=== PATIENT | male | born 1960 | race Hispanic/Latino ===

== ENCOUNTER 2019-07-23 22:20 | Emergency (ER) | payer OTHER ==
[~2019-07-23] VITALS: Ht 167.6 cm; Wt 102.3 kg
--- OUTSIDE RECORDS SUMMARY | 2019-07-23 22:22 | XMS REPORT ---
Author Author [facility] Address Unknown Phone Unavailable Care Team Providers Care Ship Fitter Name Role Phone Unavailable Unavailable Problems This patient has no known problems. Allergies, Adverse Reactions, Alerts This patient has no known allergies or adverse reactions. Medications This patient has no known medications. Encounters Start Date/Time End Date/Time Encounter Type Admission Type Attending [facility] Care Department Encounter ID 2018-11-19 00:00:00 2018-11-19 00:00:00 [facility] [id number] 2018-07-30 00:00:00 2018-07-30 00:00:00 [facility] [id number] 2018-07-30 00:00:00 2018-07-30 00:00:00 [facility] [id number] 2018-05-28 00:00:00 2018-05-28 00:00:00 [facility] [id number] 2018-05-21 07:36:05 2018-05-21 07:36:05 [facility] [id number] 2018-05-14 13:02:04 2018-05-14 13:02:04 [facility] [id number] 2018-05-14 00:00:00 2018-05-14 00:00:00 [facility] [id number] 2018-05-13 08:15:50 2018-05-13 08:15:50 [facility] [id number] 2018-05-05 00:00:00 2018-05-05 00:00:00 [facility] [id number] 2018-04-30 12:24:05 2018-04-30 12:24:[address] [facility] [id number] 2018-04-30 10:16:55 2018-04-30 10:16:55 [facility] [id number] 2018-04-30 00:00:00 2018-04-30 00:00:00 [facility] [id number] 2018-04-25 06:11:00 2018-04-25 06:11:00 Outpatient [facility] [id number] 2018-04-25 00:00:00 2018-04-25 00:00:00 [facility] [id number] 2018-04-17 10:15:37 2018-04-17 10:15:37 [facility] [id number] 2018-04-17 00:00:00 2018-04-17 00:00:00 [facility] [id number] 2018-04-10 11:27:06 2018-04-10 11:27:06 [facility] [id number] 2018-04-10 00:00:00 2018-04-10 00:00:00 [facility] [id number] 2018-04-08 10:09:47 2018-04-08 10:09:47 [facility] [id number] 2018-04-08 09:30:36 2018-04-08 09:30:36 [facility] [id number] 2018-04-01 09:48:11 2018-04-01 09:48:11 [facility] [id number] 2018-03-19 08:45:07 2018-03-19 08:45:07 [facility] [id number] 2018-03-12 00:00:00 2018-03-12 00:00:00 [facility] [id number] 2018-02-13 00:00:00 2018-02-13 00:00:00 [facility] [id number] 2018-02-12 00:00:00 2018-02-12 00:00:00 [facility] [id number] 2018-02-05 17:16:09 2018-02-05 17:16:09 [facility] [id number] 2018-02-05 07:35:41 2018-02-05 07:35:[address] [facility] [id number] 2018-01-30 14:33:34 2018-01-30 14:33:34 [facility] [id number] 2018-01-29 07:43:14 2018-01-29 07:43:14 [facility] [id number] 2018-01-21 00:00:00 2018-01-21 00:00:00 [facility] [id number] 2018-01-20 14:39:38 2018-01-20 14:39:38 [facility] [id number] 2018-01-16 00:00:00 2018-01-16 00:00:00 [facility] [id number] 2018-01-14 00:00:00 2018-01-14 00:00:00 [facility] [id number] 2018-01-06 11:44:19 2018-01-06 11:44:19 [facility] [id number] 2018-01-02 11:44:04 2018-01-02 11:44:04 [facility] [id number] 2018-01-01 22:53:22 2018-01-01 22:53:22 Outpatient [facility] [id number] 2018-01-01 16:12:56 2018-01-01 16:12:56 [facility] [id number] 2018-01-01 10:41:41 2018-01-01 10:41:41 [facility] [id number]
[2019-07-23] MEDS ORDERED: KETOROLAC TROMETHAMINE 60 MG/2 ML VIAL IM ONE (22:30)
--- NOTE | 2019-07-23 23:11 | Diagnostic Imaging Report ---
EXAMINATION: CHEST 2 VIEWS INDICATION: COUGH, PAIN WITH COUGHING COMPARISON: None FINDINGS: TUBES and LINES: None. LUNGS: Bibasilar patchy densities, left greater than right suggesting subsegmental atelectasis. Mild prominence of the pulmonary vasculature bilaterally. PLEURA: No pleural effusion or pneumothorax. HEART AND MEDIASTINUM: Cardiac size is moderately enlarged. BONES AND SOFT TISSUES: No acute osseous lesion. UPPER ABDOMEN: No free air under the diaphragm. IMPRESSION: Moderate cardiomegaly mild bilateral pulmonary venous congestion. Bibasilar subsegmental atelectasis. Signed by: Dr. Eugene Carballo M.D. on 07/23/2019 11:08 PM
== END 2019-07-23 23:34 | disposition home or self-care (01) ==
LOC: ER 22:20
DX: J20.9 Acute bronchitis, unspecified (principal); S39.011A Strain of muscle, fascia and tendon of abdomen, initial encounter; X58.XXXA Exposure to other specified factors, initial encounter; I10 Essential (primary) hypertension; K21.9 Gastro-esophageal reflux disease without esophagitis; E78.5 Hyperlipidemia, unspecified; Z86.73 Personal history of transient ischemic attack (TIA), and cerebral infarction without residual deficits
CPT/HCPCS: 71046; 99282; J1885

== ENCOUNTER 2019-12-02 09:35 | Emergency (ER) | payer OTHER ==
[~2019-12-02] VITALS: Ht 167.6 cm; Wt 95.3 kg
--- NOTE | 2019-12-02 10:10 | Emergency Department Note ---
History of Present Illnes History of Present Illness Chief Complaint: Eye, Ear, Nose, Throat, Dental History of Present Illness This is a 59 year old male HERE FOR CHRONIC NASAL CONGESTION, STATES PROBLEM HAS BEEN SINCE 2 YEARS PLUS. CLIENT DENIES FEVER, COUGH, NAUSEA, VOMITING, DIARRHEA. Historian: Patient Arrival Mode: Car Screen Printing Equipment Setter Required: Yes (VICKEY, SWITCH OPERATOR IN TRIAGE) Location: NASAL CONGESTION Quality: CONGESTION Radiation: Reports non-radiation Severity: moderate Onset quality: gradual Duration (how long): month(s) (YEARS) Timing of current episode: intermittent (GETS WORSE AT NIGHT) Progression: waxing and waning Chronicity: chronic Context: Denies recent illness Relieving factors: none Exacerbating factors: none Associated symptoms: Reports denies other symptoms; Denies fever/chills, Denies shortness of breath Treatments prior to arrival: none Past Medical/Family History Physician Review I have reviewed the patient's past medical and family history. Any updates have been documented here. Past Medical History Recent Fever: No Clinical Suspicion of Infectio: No New/Unexplained Change in Ment: No Past Medical History: CHF, CVA, Hyperlipedemia Past Surgical History: Hernia Repair Other Surgery: INGUINAL HERNIA REPAIR Social History Smoking Cessation: Never Smoker Counseling Performed: No Alcohol Use: Social Any Illegal Drug Use: No TB Exposure/Symptoms: No Physically hurt or threatened: No Family History Family history of heart diseas: Yes Other Any Pre-Existing Lines (PICC,: No Review of Systems Review of Systems Constitutional: Reports no symptoms EENTM: Reports as per HPI Cardiovascular: Reports no symptoms Respiratory: Reports no symptoms Gastrointestinal: Reports no symptoms Genitourinary: Reports no symptoms Musculoskeletal: Reports no symptoms Integumentary: Reports no symptoms Neurological: Reports no symptoms Psychological: Reports no symptoms Endocrine: Reports no symptoms Hematological/Lymphatic: Reports no symptoms Physical Exam Related Data Allergies: Coded Allergies: No Known Allergies (Unverified , 07/23/19) Triage Vital Signs Vital Signs Date Time Temp Pulse Resp B/P (MAP) Pulse Ox O2 Delivery O2 Flow Rate FiO2 12/02/19 09:55 98.4 86 16 115/74 96 Vital signs reviewed: Yes Physical Exam CONSTITUTIONAL Constitutional: Present well-developed, Present well-nourished HENT HENT: Present oropharynx clear/moist, Present oropharynx normal, Present other (MILD TENDERNESS BILAT MAXILLARY SINUSES, BOGGY TURBINATES BILAT NARES) HENT L/R: Present left ext ear normal, Present right ext ear normal EYES Eyes: Reports PERRL, Reports conjunctivae normal NECK Neck: Present ROM normal PULMONARY Pulmonary: Present effort normal, Present breath sounds normal CARDIOVASCULAR Cardiovascular: Present regular rhythm, Present heart sounds normal, Present capillary refill normal, Present normal rate GASTROINTESTINAL Abdominal: Present soft, Present nontender, Present bowel sounds normal GENITOURINARY Genitourinary: Present exam deferred SKIN Skin: Present warm, Present dry MUSCULOSKELETAL Musculoskeletal: Present ROM normal NEUROLOGICAL Neurological: Present alert, Present oriented x 3, Present no gross motor or sensory deficits PSYCHOLOGICAL Psychological: Present mood/affect normal, Present judgement normal Assessment & Plan Medical Decision Making MDM SEASONAL VS CHRONIC SINUSITIS - NO TESTING NEEDED, NEEDS PCP Reassessment Reassessment DC HOME WITH INSTRUCTIONS FOR JOAQUIN VS ZYRTEC DAILY, FLONASE NS BID X 1 WEEK THEN QDAY, AUGMENTIN BID X 10 DAYS, PCP GIVE DR NAVARRO'S NUMBER Assessment & Plan Final Impression: (1) Sinusitis Last Vital Signs Date Time Temp Pulse Resp B/P (MAP) Pulse Ox O2 Delivery O2 Flow Rate FiO2 12/02/19 09:55 98.4 86 16 115/74 96 GERRI NIEVES MD Dec 02, 2019 10:10
== END 2019-12-02 10:13 | disposition home or self-care (01) ==
LOC: ER 09:35
DX: J32.9 Chronic sinusitis, unspecified (principal); I50.9 Heart failure, unspecified; E78.5 Hyperlipidemia, unspecified; Z86.73 Personal history of transient ischemic attack (TIA), and cerebral infarction without residual deficits
CPT/HCPCS: 99282

== ENCOUNTER 2019-12-08 21:32 | Inpatient (IN) | payer OTHER ==
[~2019-12-08] VITALS: Ht 167.6 cm; Wt 99.8 kg
--- NOTE | 2019-12-08 23:39 | Emergency Department Note ---
History of Present Illnes History of Present Illness Chief Complaint: Respiratory History of Present Illness This is a 59 year old male c/o SOB, chest congestion, chest pain, gene ral malaise for 3 weeks, been to ER and PCP office, told to have COVID 19 but no test was done. He was put on abx and currently taking it. Marco A is not getting better Past Medical History CHF, CVA, Hyperlipedemia Past Surgical History: Hernia Repair Other Surgery INGUINAL HERNIA REPAIR Historian: Patient Arrival Mode: Car Onset (how long ago): week(s) (3 weeks) Severity: moderate Duration (how long): week(s) Progression: waxing and waning Relieving factors: none Exacerbating factors: none Previous service: medications given Past Medical/Family History Physician Review I have reviewed the patient's past medical and family history. Any updates have been documented here. Past Medical History Past Medical History: CHF, CVA, Hyperlipedemia Past Surgical History: Hernia Repair Other Surgery: INGUINAL HERNIA REPAIR Social History Smoking Cessation: Former smoker Counseling Performed: No Alcohol Use: None Any Illegal Drug Use: No TB Exposure/Symptoms: No Physically hurt or threatened: No Family History Family history of heart diseas: No Other Any Pre-Existing Lines (PICC,: No Review of Systems Review of Systems Constitutional: Reports no symptoms EENTM: Reports no symptoms Cardiovascular: Reports as per HPI Respiratory: Reports as per HPI, Reports chest congestion, Reports cough, Reports pain on inspiration, Reports pain with cough, Reports dyspnea Gastrointestinal: Reports no symptoms Genitourinary: Reports no symptoms Musculoskeletal: Reports no symptoms Integumentary: Reports no symptoms Neurological: Reports no symptoms Psychological: Reports no symptoms Endocrine: Reports no symptoms Hematological/Lymphatic: Reports no symptoms Physical Exam Related Data Allergies: Coded Allergies: No Known Allergies (Unverified , 07/23/19) Vital signs reviewed: Yes Physical Exam CONSTITUTIONAL Constitutional: Present well-developed, Present obese, Present distressed HENT HENT: Present normocephalic, Present atraumatic, Present oropharynx clear/ moist, Present nose normal HENT L/R: Present left ext ear normal, Present right ext ear normal EYES Eyes: Reports PERRL, Reports conjunctivae normal NECK Neck: Present ROM normal PULMONARY Pulmonary: Present effort normal, Present rales CARDIOVASCULAR Cardiovascular: Present regular rhythm, Present heart sounds normal, Present capillary refill normal, Present normal rate GASTROINTESTINAL Abdominal: Present soft, Present nontender, Present bowel sounds normal GENITOURINARY Genitourinary: Present exam deferred SKIN Skin: Present warm, Present dry MUSCULOSKELETAL Musculoskeletal: Present ROM normal, Present edema NEUROLOGICAL Neurological: Present alert, Present oriented x 3, Present no gross motor or sensory deficits PSYCHOLOGICAL Psychological: Present mood/affect normal, Present judgement normal Results Laboratory Lab results reviewed: Yes Laboratory comments BNP high, CMN Imaging Imaging results reviewed: Yes Imaging Comments c/w COVID 19 Diagnostics Tests Diagnostic test(s) reviewed: Yes Assessment & Plan Medical Decision Making MDM pneumonia, complicated by CHF Reassessment Reassessment time: 02:08 Reassessment doing about the same Assessment & Plan Final Impression: (1) Hypoxia (2) Pneumonia (3) COVID-19 virus infection Depart Disposition: ADMITTED Medications in the ED Rocephin IV Dexamethasone. Physician Attestation Provider Attestation Pt is symptomatic, hx CHF need admission. Admit to Dr Urena. PCP OXANA Limon MD Dec 08, 2019 23:39
--- NOTE | 2019-12-08 23:48 | Diagnostic Imaging Report ---
Examination: Single AP view of the chest. COMPARISON: Chest PA and lateral 07/23/2019 INDICATION: Cough, COVID testing IMPRESSION: 1. Lines and Tubes: None 2. Lungs are well-inflated. Bilateral ill-defined patchy and predominantly peripherally located interstitial and airspace opacities, better visualized in the right mid lung and left midlung/retrocardiac region. Findings are suggestive of pneumonia (including viral disease) in the appropriate clinical setting. Alveolar and interstitial edema with a secondary consideration. 3. Stable marked enlargement of the cardiac silhouette with enlargement of the left atrium. Central pulmonary venous congestion. 4. No acute bony abnormalities. Signed by: Dr. Trenton Roblero M.D. on 12/08/2019 11:45 PM
[2019-12-09] VITALS (7 sets, daily range): BP systolic 116–123; BP diastolic 75–82
[2019-12-09] MEDS ORDERED: CEFTRIAXONE SOD 1 GM/NS 50 ML 50 ML IV ONE (00:15)
[2019-12-09] MEDS ORDERED: DEXAMETHASONE SOD PHOS 10 MG/1 ML VIAL IV ONE (00:15)
[2019-12-09] MEDS ORDERED: AZITHROMYCIN 500MG/SOD CHL 0.9% 250ML BAG IV SCH (02:00)
[2019-12-09] MEDS ORDERED: ZOLPIDEM TARTRATE 5 MG TAB PO PRN (02:00)
[2019-12-09] MEDS ORDERED: ACETAMINOPHEN 325 MG TAB PO PRN (02:00)
[2019-12-09] MEDS ORDERED: ONDANSETRON HCL INJ 2MG/ML 2ML 2 MG/ML VIAL IV PRN (02:00)
[2019-12-09] MEDS ORDERED: DIPHENHYDRAMINE HCL INJ 50 MG/ML VIAL IV PRN (02:00)
[2019-12-09] MEDS ORDERED: SODIUM CHLORIDE FLUSH 10 ML SYR INJ PRN (02:00)
--- NOTE | 2019-12-09 02:07 | NUR ---
SPOKE WITH [facility] ETA APPROX. 30/45MINS.
--- NOTE | 2019-12-09 02:42 | NUR ---
REPORT TO DIEGO KENYON FOR ROOM 179. SENDING 1ST DOSE ZITHROMAX WITH PT
[2019-12-09] MEDS ORDERED: AZITHROMYCIN 500MG/NS 250 ML 250 ML ONE (02:48)
--- NOTE | 2019-12-09 02:54 | NUR ---
report called from Sherrie RN, PATIENT PENDING ARRIVAL TO THE OBS UNIT FOR FURTHER EVALUATION, RN WILL SEND ZITHROMAX WITH PATIENT
[2019-12-09] MEDS ORDERED: SODIUM CHLORIDE 0.9% 250ML 250 ML IV ONE (03:15)
--- NOTE | 2019-12-09 04:00 | NUR ---
LAB REPORTED PT COVID-19 RESULT POSITIVE, PT INFORMED OF RESULT
[2019-12-09] MEDS ORDERED: CARVEDILOL12.5 MG PO (05:10)
[2019-12-09] MEDS ORDERED: LISINOPRIL10 MG PO (05:10)
[2019-12-09] MEDS ORDERED: PREDNISONE20 MG PO (05:10)
[2019-12-09] MEDS ORDERED: AZITHROMYCIN250 MG PO (05:10)
[2019-12-09] MEDS ORDERED: ELIQUIS5 M1 PO (05:10)
[2019-12-09] MEDS ORDERED: PROTONIX20 MG PO (05:10)
[2019-12-09 05:25] LABS: HEMATOCRIT 41.8 % (38.2-49.6); LYMPHOCYTES # (AUTO) 0.5 (1.0-3.2); LYMPHOCYTES % 7.2 % (18.0-39.1); MEAN CORPUSCULAR HEMOGLOBIN 28.4 pg (28-32); MEAN CORPUSCULAR HGB CONC 31.1 g/dL (31-35); MEAN CORPUSCULAR VOLUME 91.3 fL (81-99); MONOCYTES # (AUTO) 0.4 (0.2-0.8); MONOCYTES % 5.7 % (4.4-11.3); NEUTROPHILS # (AUTO) 5.8 (2.1-6.9); NEUTROPHILS % 86.6 % (38.7-80.0); PLATELET COUNT 206 x10e3/uL (140-360); RED BLOOD COUNT 4.58 x10e6/uL (4.3-5.7); RED CELL DISTRIBUTION WIDTH 14.3 % (11.7-14.4)
[2019-12-09] MEDS ORDERED: CEFEPIME HCL 2 GM/SOD CHL 0.9% 100 ML BAG IV SCH (06:00)
[2019-12-09 06:06] LABS: ANION GAP 15.8 mmol/L (8-16); CALCIUM 8.7 mg/dL (8.4-10.2); CREATININE, SERUM 1.34 mg/dL (0.72-1.25); POTASSIUM 4.8 mmol/L (3.5-5.1)
--- NOTE | 2019-12-09 07:49 | NUR ---
MD JEANNE GOSS, MAKSIM HANEY RETURN CALL, INFORMED HER THAT PT RESULTED POSITIVE FOR COVID, AND IF PATIENT HOME MEDS CAN BE CONTINUED SHE STATED " I WILL LET YOU KNOW WHEN I SEE HIM'
[2019-12-09] MEDS: FAMOTIDINE 20 MG/2 ML VIAL IV SCH ×2 (08:27→17:13)
[2019-12-09] MEDS ORDERED: ENOXAPARIN SOD INJ 40 MG/0.4 ML SYR SC SCH (09:00)
[2019-12-09] MEDS ORDERED: GUAIFENESIN/CODEINE 10 ML CUP PO PRN (09:15)
[2019-12-09] MEDS ORDERED: PROAIR HFA INH8.5 GM INH (09:22)
[2019-12-09] MEDS ORDERED: Guaifenesin/Codeine PO (09:22)
[2019-12-09] MEDS ORDERED: PANTOPRAZOLE SOD 40 MG TABEC PO SCH (09:30)
[2019-12-09 09:57] LABS: CHOL/HDL RATIO 6.6 (3.9-4.7)
[2019-12-09 10:16] LABS: THYROID STIMULATING HORMONE 0.883 uIU/mL (0.350-4.940)
[2019-12-09 10:41] LABS: B-TYPE NATRIURETIC PEPTIDE2 223.6 pg/mL (0-100)
[2019-12-09] MEDS: CARVEDILOL 12.5 MG TAB PO SCH ×2 (11:00→17:14)
[2019-12-09] MEDS ORDERED: CEFEPIME 2 GM/NS 0.9% 100 ML 100 ML IV SCH (14:30)
[2019-12-09] MEDS ORDERED: CEFTRIAXONE SOD 1 GM/NS 50 ML 50 ML IV SCH (15:15)
--- NOTE | 2019-12-09 17:35 | NUR ---
Pt complaining of chest pain notified MD and received orders for STAT troponin. Dr Diaz here to see pt and ordered EKG, albuterol and one time lasix 40mg IV.
[2019-12-09] MEDS ORDERED: ALBUTEROL SULFATE HFA 8GM INHALATION AEROSOL INH PRN (18:00)
--- NOTE | 2019-12-09 18:00 | NUR ---
Notified MD of troponin results. Received orders to discharge. Antibiotics called into pharmacy of patient choice. Discussed discharge instructions with patient and new prescriptions.
[2019-12-09] MEDS ORDERED: FUROSEMIDE 40 MG TAB PO ONE (18:15)
[2019-12-09] MEDS ORDERED: FUROSEMIDE INJ 10 MG/ML 4 ML VIAL IV ONE (18:45)
--- NOTE | 2019-12-09 19:31 | NUR ---
Received report that patient was beiing discharged. &am-7pm nurse gave the discharge paperwork to the patient and reported that the patient is awaiting his ride. Remains in the room at this time. will continue to monitor until the patient leaves the facility.
--- NOTE | 2019-12-09 20:19 | NUR ---
Escorted the Patient to the front lobby with his belongings and discharge paperwork.
[2019-12-09] MEDS ORDERED: APIXABAN 5 MG TABLET PO SCH (21:00)
--- NOTE | 2019-12-09 21:34 | Consultation ---
DATE OF CONSULTATION: Pulmonary Critical Care Consultation CHIEF COMPLAINT: Dyspnea and chest pressure. HISTORY OF PRESENT ILLNESS: The patient is a 59-year-old man. He has a history of atrial fibrillation. He also has a history of a stroke in March of 2019. The patient reports intermittent dyspnea since May. He notes that it is worse at times and better at times. Over the past three weeks, he notes worsening dyspnea. He feels that there is a pressure on his chest. He denies fevers. He does not complain of cough. PAST SURGICAL HISTORY: Status post cardiac catheterization several years ago that was negative. PAST MEDICAL HISTORY: 1. History of atrial fibrillation. 2. History of systolic cardiomyopathy. 3. Hypertension. ALLERGIES: NO KNOWN DRUG ALLERGIES. SOCIAL HISTORY: The patient never smoked. He is not a drinker. FAMILY HISTORY: Noncontributory. REVIEW OF SYSTEMS: There is no fever. He has no headache. He does complain of dyspnea. It is worse with exertion. He also notes some pressure in his chest. He does not complain of abdominal pain. He has no nausea or vomiting. He has no leg edema. He reports difficulty hearing, but no other focal abnormalities. PHYSICAL EXAMINATION: VITAL SIGNS: The patient is afebrile. The blood pressure is 116/77, saturation is 98%. The pulse is 91. HEENT: No facial swelling or erythema. CARDIAC: Reveals regular rate and rhythm with normal S1, S2. LUNGS: Auscultation of lungs reveals clear breath sounds bilaterally. There is no wheezing. ABDOMEN: Soft, nontender. There is no rebound or guarding. EXTREMITIES: No leg edema or calf tenderness. There is no cyanosis clubbing. SKIN: No rashes. NEUROLOGICAL: No focal abnormalities. LABORATORY DATA: White blood cell count is 6.6 and hemoglobin is 13. The platelet count is 206. The BUN to creatinine ratio is 41 to 1.34. The other electrolytes are within normal limits. RADIOGRAPHIC DATA: Chest x-ray shows patchy ill-defined interstitial opacities. IMPRESSION: 1. Viral pneumonia and coronavirus disease-19 infection. 2. Chronic systolic congestive heart failure. 3. Atrial fibrillation. 4. Hypertension. PLAN: 1. Cardiology evaluation and echocardiogram. 2. Zithromax and Rocephin. 3. Lovenox for DVT prophylaxis. 4. Consider Decadron. MD SHAHANA Desai/TISH /[id number]
--- NOTE | 2019-12-10 00:49 | Consultation ---
DATE OF CONSULTATION: HISTORY OF PRESENT ILLNESS: Mr. Hinojosa is a 59-year-old male, comes in with fever and chills and not feeling well. His COVID-19 came back positive. When he first came, he was tachycardic, but currently he is feeling better, but he remains on room air. He is just feeling really bad, but no shortness of breath. He also has some chest pain. He is otherwise unremarkable. MEDICATION LIST: Reviewed. He is on: 1. Coreg. 2. Pepcid. 3. Protonix. 4. Albuterol. 5. Azithromycin. 6. Rocephin. 7. Eliquis. PHYSICAL EXAMINATION: GENERAL: He is currently alert, oriented, does not seem to be in acute distress. VITAL SIGNS: Stable, currently afebrile. HEENT: He is not icteric. NECK: Supple. CHEST: Clear bilaterally. HEART: S1, S2. ABDOMEN: Soft. IMPRESSION: 1. Chest pain, rule out cardiac arrest, fluid overload. 2. Concern about pneumonia, community acquired. 3. COVID-19. I agree with antibiotic. We will give Lasix p.o. x1. We will follow up in the morning. Further recommendations to follow. MD ENRIQUETA Reis/TISH /[id number]
[2019-12-10] MEDS ORDERED: AZITHROMYCIN 500MG/NS 250 ML 250 ML IV SCH (04:00)
--- NOTE | 2019-12-10 22:11 | Discharge Summary ---
ADMISSION DIAGNOSES: Coronavirus disease 2019 pneumonia, present on admission; atrial fibrillation; gastroesophageal reflux disease; hypertension. DISCHARGE DIAGNOSES: Coronavirus disease 2019 pneumonia, present on admission; atrial fibrillation; gastroesophageal reflux disease; hypertension. HISTORY: AFib, hyperlipidemia, CVA, chronic systolic CHF, hypertension. SURGICAL HISTORY: Umbilical hernia repair. FAMILY HISTORY: Noncontributory. SOCIAL HISTORY: Occasional alcohol use. HOSPITAL COURSE: A 59-year-old male admits with complaints of shortness of breath and chest congestion for 3 weeks. Yesterday, the shortness of breath worsened, so he came to the ER. At the present time, symptoms have resolved. He took 2 doses of Zithromax prior to admission. On admission, chest x-ray showed bilateral ill-defined patchy and predominantly peripherally located interstitial and airspace opacities. Findings are suggestive of pneumonia, central pulmonary venous congestion. No acute bony abnormality. The patient was 95% SpO2 or more since admission, so he was discharged home with Keflex per ID recommendation. His echo showed an EF less than 30%, which again is chronic. He shows no edema on chest x-ray or on exam. The patient is on room air and does not qualify for oxygen. He was advised to follow up with Cardiology for EF. The patient understands discharge instructions and agrees to plan. Vital signs stable, the patient is afebrile. Dictated by Bella Penn NP MD NI Good/MODL /[id number]
== END 2019-12-09 20:21 | disposition home or self-care (01) | DRG 177 ==
LOC: FSED 21:32 → ERHOLD 12-09 01:54 → IMCU 12-09 02:41
PROVIDERS: ADMIT Internal Medicine; ATTEND Internal Medicine
DX: U07.1 COVID-19 (principal); J12.9 Viral pneumonia, unspecified; I50.22 Chronic systolic (congestive) heart failure; I42.8 Other cardiomyopathies; K21.9 Gastro-esophageal reflux disease without esophagitis; I11.0 Hypertensive heart disease with heart failure; E78.5 Hyperlipidemia, unspecified; I48.91 Unspecified atrial fibrillation; Z79.01 Long term (current) use of anticoagulants
CPT/HCPCS: 36415; 71045; 80048; 80053; 80061; 83036; 83880; 84443; 84484; 85025; 87635; 93005; 93306; 96365; 96374; 99284; J0456; J0696; J1100; J1200; J1650; J1940; J2405; J7050

== ENCOUNTER 2020-06-05 17:48 | Inpatient (IN) | payer OTHER ==
[~2020-06-05] VITALS: Ht 167.6 cm; Wt 100.0 kg
[~2020-06-05 17:48] MED LIST: AZITHROMYCIN250 MG PO; CARVEDILOL12.5 MG PO; ELIQUIS5 M1 PO; Guaifenesin/Codeine PO; LISINOPRIL10 MG PO; PREDNISONE20 MG PO; PROAIR HFA INH8.5 GM INH; PROTONIX20 MG PO
[2020-06-05 18:54] LABS: BASOPHILS % 0.3 % (0.0-1.0); EOSINOPHILS # (AUTO) 0.2 (0.0-0.4); EOSINOPHILS % 3.2 % (0.0-6.0); HEMATOCRIT 35.9 % (38.2-49.6); HEMOGLOBIN 11.5 g/dL (14.0-18.0); LYMPHOCYTES % 16.3 % (18.0-39.1); MEAN CORPUSCULAR HEMOGLOBIN 29.5 pg (28-32); MEAN CORPUSCULAR VOLUME 92.1 fL (81-99); MONOCYTES # (AUTO) 0.7 (0.2-0.8); MONOCYTES % 10.9 % (4.4-11.3); NEUTROPHILS # (AUTO) 4.1 (2.1-6.9); NEUTROPHILS % 69.1 % (38.7-80.0); PLATELET COUNT 158 x10e3/uL (140-360); RED CELL DISTRIBUTION WIDTH 14.5 % (11.7-14.4)
[2020-06-05 19:05] LABS: INR 1.26; PROTHROMBIN TIME 16.4 seconds (11.9-14.5)
[2020-06-05 19:06] LABS: PARTIAL THROMBOPLASTIN TIME 37.2 seconds (23.8-35.5)
[2020-06-05 19:12] LABS: ALANINE AMINOTRANSFERASE 37 IU/L (0-55); ALBUMIN 3.8 g/dL (3.5-5.0); ALBUMIN/GLOBULIN RATIO 1.1 (0.8-2.0); ALKALINE PHOSPHATASE 77 IU/L (40-150); ANION GAP 14.6 mmol/L (8-16); BLOOD UREA NITROGEN 18 mg/dL (7-26); BUN/CREATININE RATIO 15 (6-25); CALCIUM 8.2 mg/dL (8.4-10.2); CARBON DIOXIDE 25 mmol/L (22-29); CHLORIDE 97 mmol/L (98-107); CREATINE KINASE 150 IU/L (30-200); CREATININE, SERUM 1.19 mg/dL (0.72-1.25); EST GLOMERULAR FILTRATION RATE > 60 ML/MIN (60-); GLUCOSE 104 mg/dL (74-118); POTASSIUM 4.6 mmol/L (3.5-5.1); SODIUM 132 mmol/L (136-145)
[2020-06-05 19:13] LABS: AMYLASE 41 U/L (25-125); LIPASE 18 U/L (8-78)
[2020-06-05 19:18] LABS: CLARITY,URINE CLEAR (CLEAR); COLOR,URINE YELLOW (YELLOW)
[2020-06-05 19:19] LABS: KETONES,URINE NEGATIVE (NEGATIVE); LEUKOCYTE ESTERASE ,URINE NEGATIVE (NEGATIVE); NITRITE,URINE NEGATIVE (NEGATIVE); PROTEIN,URINE DIPSTICK >=300 (NEGATIVE); URINE UROBILINOGEN 1 mg/dL (0.2 - 1); WBC,URINE (MAN) 0-5 /HPF (0-5)
[2020-06-05 19:20] LABS: EPITHELIAL CELLS,URINE FEW /LPF; MUCUS,URINE FEW (RARE); RBC,URINE 0-5 /HPF (0-5)
[2020-06-05] MEDS ORDERED: IOPAMIDOL 370 MG/ML 200 ML INFUS..BTL INJ ONE ×2 (19:58→22:51)
[2020-06-05] MEDS ORDERED: SODIUM CHLORIDE 0.9% 50ML 50 ML ONE ×2 (19:58→22:51)
[2020-06-05] MEDS ORDERED: PIPER-TAZ 3.375 GM / NS 50ML IV STA (21:59)
[2020-06-05] MEDS ORDERED: ONDANSETRON HCL INJ 2MG/ML 2ML 2 MG/ML VIAL IV PRN (22:00)
[2020-06-05] MEDS ORDERED: PIPER-TAZ 3.375 GM / NS 50ML IV SCH (22:00)
[2020-06-05] MEDS ORDERED: SODIUM CHLORIDE FLUSH 10 ML SYR INJ PRN (22:00)
[2020-06-05] MEDS ORDERED: MORPHINE SULFATE INJ 4 MG/ML INJ 1ML IV PRN (22:00)
[2020-06-05] MEDS ORDERED: FUROSEMIDE20 MG PO (22:56)
[2020-06-05] MEDS ORDERED: SIMVASTATIN10 MG PO (22:56)
[2020-06-05] MEDS ORDERED: SUCRALFATE1 GM PO (22:56)
[2020-06-05] MEDS ORDERED: ALLOPURINOL300 MG PO (22:56)
[2020-06-05] MEDS ORDERED: ELIQUIS5 MG PO (22:56)
[2020-06-06] VITALS (7 sets, daily range): BP systolic 123–143; BP diastolic 53–97
[2020-06-06] MEDS ORDERED: SODIUM CHLORIDE 0.9% 250ML 250 ML ONE (04:16)
[2020-06-06] MEDS ORDERED: ALBUTEROL/IPRATROPIUM 3 ML NEB NEB PRN (04:30)
[2020-06-06] MEDS: PIPER-TAZ 3.375 GM 50 ML IV SCH ×3 (05:13→22:00)
[2020-06-06 07:26] LABS: BASOPHILS % 0.3 % (0.0-1.0); EOSINOPHILS # (AUTO) 0.2 (0.0-0.4); HEMATOCRIT 36.4 % (38.2-49.6); HEMOGLOBIN 11.2 g/dL (14.0-18.0); LYMPHOCYTES % 16.4 % (18.0-39.1); MEAN CORPUSCULAR HGB CONC 30.8 g/dL (31-35); MEAN CORPUSCULAR VOLUME 94.3 fL (81-99); MONOCYTES # (AUTO) 0.6 (0.2-0.8); MONOCYTES % 11.1 % (4.4-11.3); NEUTROPHILS # (AUTO) 3.9 (2.1-6.9); PLATELET COUNT 143 x10e3/uL (140-360); RED BLOOD COUNT 3.86 x10e6/uL (4.3-5.7); RED CELL DISTRIBUTION WIDTH 14.6 % (11.7-14.4)
[2020-06-06 07:48] LABS: ALANINE AMINOTRANSFERASE 31 IU/L (0-55); ALBUMIN 3.5 g/dL (3.5-5.0); ALBUMIN/GLOBULIN RATIO 1.1 (0.8-2.0); ALKALINE PHOSPHATASE 65 IU/L (40-150); ANION GAP 11.3 mmol/L (8-16); BLOOD UREA NITROGEN 15 mg/dL (7-26); BUN/CREATININE RATIO 17 (6-25); CALCIUM 8.2 mg/dL (8.4-10.2); CARBON DIOXIDE 28 mmol/L (22-29); CHLORIDE 99 mmol/L (98-107); CREATININE, SERUM 0.88 mg/dL (0.72-1.25); EST GLOMERULAR FILTRATION RATE > 60 ML/MIN (60-); GLUCOSE 98 mg/dL (74-118); POTASSIUM 4.3 mmol/L (3.5-5.1); SODIUM 134 mmol/L (136-145)
[2020-06-06 08:03] LABS: CREATINE KINASE MB 1.6 ng/mL (0-5.0)
[2020-06-06] MEDS ORDERED: SODIUM CHLORIDE 0.9% 1000ML 1,000 ML IV SCH (13:15)
[2020-06-06] MEDS ORDERED: FUROSEMIDE INJ 10 MG/ML 4 ML VIAL IV ONE (15:00)
[2020-06-06] MEDS: SUCRALFATE 1 GM TAB PO SCH (15:05)
[2020-06-06] MEDS: CARVEDILOL 12.5 MG TAB PO SCH (15:05)
[2020-06-06 16:18] LABS: CREATINE KINASE MB 1.4 ng/mL (0-5.0)
[2020-06-06] MEDS: APIXABAN 5 MG TABLET PO SCH (16:57)
[2020-06-06] MEDS: SIMVASTATIN 20 MG TAB PO SCH (20:32)
[2020-06-06] MEDS ORDERED: NON-FORMULARY MEDICATION (Simvastatin 10 MG) PO SCH (21:00)
[2020-06-07] VITALS (8 sets, daily range): BP systolic 113–146; BP diastolic 58–92
[2020-06-07] MEDS ORDERED: BISACODYL 5 MG TAB EC PO ONE ×3 (00:30→01:30)
[2020-06-07] MEDS ORDERED: CITRATE OF MAGNESIA 300ML BOTTLE PO ONE ×3 (00:30→07:30)
[2020-06-07 04:53] LABS: BASOPHILS % 0.4 % (0.0-1.0); EOSINOPHILS # (AUTO) 0.2 (0.0-0.4); EOSINOPHILS % 4.6 % (0.0-6.0); HEMATOCRIT 37.7 % (38.2-49.6); HEMOGLOBIN 11.5 g/dL (14.0-18.0); LYMPHOCYTES # (AUTO) 0.9 (1.0-3.2); LYMPHOCYTES % 18.8 % (18.0-39.1); MEAN CORPUSCULAR HEMOGLOBIN 29.1 pg (28-32); MEAN CORPUSCULAR HGB CONC 30.5 g/dL (31-35); MEAN CORPUSCULAR VOLUME 95.4 fL (81-99); MONOCYTES # (AUTO) 0.6 (0.2-0.8); MONOCYTES % 12.5 % (4.4-11.3); NEUTROPHILS # (AUTO) 3.1 (2.1-6.9); NEUTROPHILS % 63.3 % (38.7-80.0); PLATELET COUNT 143 x10e3/uL (140-360); RED BLOOD COUNT 3.95 x10e6/uL (4.3-5.7); RED CELL DISTRIBUTION WIDTH 14.3 % (11.7-14.4)
[2020-06-07 05:21] LABS: ALANINE AMINOTRANSFERASE 29 IU/L (0-55); ALBUMIN 3.4 g/dL (3.5-5.0); ALKALINE PHOSPHATASE 73 IU/L (40-150); ANION GAP 10.2 mmol/L (8-16); BLOOD UREA NITROGEN 10 mg/dL (7-26); BUN/CREATININE RATIO 11 (6-25); CALCIUM 8.5 mg/dL (8.4-10.2); CARBON DIOXIDE 34 mmol/L (22-29); CHLORIDE 97 mmol/L (98-107); CREATININE, SERUM 0.89 mg/dL (0.72-1.25); EST GLOMERULAR FILTRATION RATE > 60 ML/MIN (60-); GLUCOSE 108 mg/dL (74-118); POTASSIUM 4.2 mmol/L (3.5-5.1); SODIUM 137 mmol/L (136-145)
[2020-06-07] MEDS: PIPER-TAZ 3.375 GM 50 ML IV SCH ×3 (05:42→21:21)
[2020-06-07 06:23] LABS: FERRITIN 18.8 ng/mL (21.81-274.66)
[2020-06-07] MEDS: SUCRALFATE 1 GM TAB PO SCH ×2 (07:30→16:30)
[2020-06-07] MEDS: FUROSEMIDE INJ 10 MG/ML 4 ML VIAL IV SCH (08:18)
[2020-06-07] MEDS: CARVEDILOL 12.5 MG TAB PO SCH ×2 (08:41→17:00)
[2020-06-07] MEDS: LISINOPRIL 20 MG TAB PO SCH (08:42)
[2020-06-07] MEDS: APIXABAN 5 MG TABLET PO SCH ×2 (08:42→17:00)
[2020-06-07] MEDS: PANTOPRAZOLE SOD 40 MG TABEC PO SCH (08:48)
[2020-06-07] MEDS ORDERED: FUROSEMIDE 20 MG TAB PO SCH (09:00)
[2020-06-07] MEDS ORDERED: LISINOPRIL 10 MG TAB PO SCH (09:00)
[2020-06-07] MEDS ORDERED: ETOMIDATE 2 MG/ML 10 ML INJ IV ONE (12:26)
[2020-06-07] MEDS ORDERED: PROPOFOL IV EMULSION 10 MG/ML 20 ML VIAL ONE ×2 (12:26→19:37)
[2020-06-07] MEDS ORDERED: MIDAZOLAM HCL 2 MG/2 ML VIAL ONE (12:56)
[2020-06-07] MEDS: IRON SUCROSE 100 MG in SODIUM CHLORIDE 0.9% 100 ML 100 ML IV SCH (12:57)
[2020-06-07] MEDS: ALBUTEROL/IPRATROPIUM 3 ML NEB NEB SCH ×3 (15:30→23:10)
[2020-06-07] MEDS ORDERED: PROPOFOL IV EMULSION 0 ML IV ONE (19:04)
[2020-06-07] MEDS ORDERED: ETOMIDATE 40 MG/ 20ML VIAL IV ONE (19:37)
[2020-06-07] MEDS: SIMVASTATIN 20 MG TAB PO SCH (21:18)
[2020-06-08] VITALS: BP 130/75
[2020-06-08] MEDS: ALBUTEROL/IPRATROPIUM 3 ML NEB NEB SCH ×4 (03:30→15:00)
[2020-06-08 04:05] VITALS: BP 104/70
[2020-06-08 04:56] LABS: BASOPHILS % 0.2 % (0.0-1.0); EOSINOPHILS # (AUTO) 0.2 (0.0-0.4); EOSINOPHILS % 3.9 % (0.0-6.0); HEMATOCRIT 37.7 % (38.2-49.6); HEMOGLOBIN 11.4 g/dL (14.0-18.0); LYMPHOCYTES # (AUTO) 0.9 (1.0-3.2); LYMPHOCYTES % 15.2 % (18.0-39.1); MEAN CORPUSCULAR HGB CONC 30.2 g/dL (31-35); MEAN CORPUSCULAR VOLUME 95.9 fL (81-99); MONOCYTES # (AUTO) 0.7 (0.2-0.8); MONOCYTES % 11.6 % (4.4-11.3); NEUTROPHILS % 68.8 % (38.7-80.0); PLATELET COUNT 138 x10e3/uL (140-360); RED BLOOD COUNT 3.93 x10e6/uL (4.3-5.7); RED CELL DISTRIBUTION WIDTH 14.4 % (11.7-14.4)
[2020-06-08 05:16] LABS: ANION GAP 11.7 mmol/L (8-16); BLOOD UREA NITROGEN 9 mg/dL (7-26); BUN/CREATININE RATIO 9 (6-25); CALCIUM 8.4 mg/dL (8.4-10.2); CARBON DIOXIDE 32 mmol/L (22-29); CHLORIDE 97 mmol/L (98-107); CREATININE, SERUM 0.97 mg/dL (0.72-1.25); EST GLOMERULAR FILTRATION RATE > 60 ML/MIN (60-); GLUCOSE 92 mg/dL (74-118); POTASSIUM 3.7 mmol/L (3.5-5.1); SODIUM 137 mmol/L (136-145)
[2020-06-08] MEDS: PIPER-TAZ 3.375 GM 50 ML IV SCH ×2 (05:57→14:00)
[2020-06-08 08:30] VITALS: BP 122/76
[2020-06-08 08:41] VITALS: BP 122/76
[2020-06-08] MEDS: SUCRALFATE 1 GM TAB PO SCH ×2 (09:01→16:30)
[2020-06-08] MEDS: CARVEDILOL 12.5 MG TAB PO SCH ×2 (09:01→16:38)
[2020-06-08] MEDS: FUROSEMIDE INJ 10 MG/ML 4 ML VIAL IV SCH (09:01)
[2020-06-08] MEDS: APIXABAN 5 MG TABLET PO SCH ×2 (09:01→16:38)
[2020-06-08] MEDS: PANTOPRAZOLE SOD 40 MG TABEC PO SCH (09:01)
[2020-06-08] MEDS: LISINOPRIL 20 MG TAB PO SCH (09:01)
[2020-06-08] MEDS: IRON SUCROSE 100 MG in SODIUM CHLORIDE 0.9% 100 ML 100 ML IV SCH (11:21)
[2020-06-08 11:31] VITALS: BP 123/80
[2020-06-08 16:13] VITALS: BP 120/68
[2020-06-09] MEDS ORDERED: FLUTICASONE PROPIONATE NASAL SPRAY NS SCH (09:00)
== END 2020-06-08 17:39 | disposition home or self-care (01) | DRG 292 ==
LOC: ER 18:00 → ERHOLD 22:14 → MED/SURG2 06-06 00:49
PROVIDERS: ADMIT Internal Medicine; ATTEND Internal Medicine
PROC: 0DB98ZX Excision of Duodenum, Via Natural or Artificial Opening Endoscopic, Diagnostic (ICD-10-PCS; principal; 2020-06-05)
PROC: 0DB78ZX Excision of Stomach, Pylorus, Via Natural or Artificial Opening Endoscopic, Diagnostic (ICD-10-PCS; 2020-06-05)
PROC: 0DB68ZX Excision of Stomach, Via Natural or Artificial Opening Endoscopic, Diagnostic (ICD-10-PCS; 2020-06-05)
PROC: 0DBN8ZX Excision of Sigmoid Colon, Via Natural or Artificial Opening Endoscopic, Diagnostic (ICD-10-PCS; 2020-06-05)
DX: I11.0 Hypertensive heart disease with heart failure (principal); I48.20 Chronic atrial fibrillation, unspecified; I50.23 Acute on chronic systolic (congestive) heart failure; Z79.01 Long term (current) use of anticoagulants; E78.5 Hyperlipidemia, unspecified; D64.9 Anemia, unspecified; E78.00 Pure hypercholesterolemia, unspecified; K21.9 Gastro-esophageal reflux disease without esophagitis; D50.9 Iron deficiency anemia, unspecified; K63.5 Polyp of colon; K29.70 Gastritis, unspecified, without bleeding; K20.90 Esophagitis, unspecified without bleeding; K57.90 Diverticulosis of intestine, part unspecified, without perforation or abscess without bleeding; Z20.828 Contact with and (suspected) exposure to other viral communicable diseases
CPT/HCPCS: 36415; 43239; 45380; 45385; 71045; 74177; 80048; 80053; 81001; 82140; 82150; 82550; 82553; 82607; 82728; 82746; 82948; 83540; 83690; 83880; 84466; 84484; 85025; 85045; 85610; 85730; 88305; 88312; 93005; 93306; 94640; 99284; J1756; J1940; J2250; J2543; J7030; J7050; Q9967; U0002

== ENCOUNTER 2020-10-22 10:37 | Emergency (ER) | payer OTHER ==
[~2020-10-22] VITALS: Ht 167.6 cm; Wt 99.8 kg
[~2020-10-22 10:37] MED LIST changes: +ALLOPURINOL300 MG PO; +ELIQUIS5 MG PO; +FUROSEMIDE20 MG PO; +SIMVASTATIN10 MG PO; +SUCRALFATE1 GM PO
[2020-10-22] MEDS ORDERED: ALBUTEROL/IPRATROPIUM 3 ML NEB NEB ONE (10:45)
[2020-10-22] MEDS ORDERED: METHYLPREDNISOLONE SOD SUCC 125 MG/2ML VIAL IV STA (10:45)
[2020-10-22] MEDS ORDERED: DILTIAZEM HCL 5 MG/ML 5 ML VIAL IV STA (10:45)
[2020-10-22] MEDS ORDERED: DIGOXIN INJ 0.25 MG/ML 2 ML AMP IV ONE (10:45)
[2020-10-22 11:06] LABS: BASOPHILS % 0.5 % (0.0-1.0); EOSINOPHILS # (AUTO) 0.1 (0.0-0.4); EOSINOPHILS % 1.3 % (0.0-6.0); HEMATOCRIT 39.9 % (38.2-49.6); HEMOGLOBIN 12.9 g/dL (14.0-18.0); LYMPHOCYTES # (AUTO) 0.2 (1.0-3.2); LYMPHOCYTES % 2.6 % (18.0-39.1); MEAN CORPUSCULAR HEMOGLOBIN 29.5 pg (28-32); MEAN CORPUSCULAR HGB CONC 32.3 g/dL (31-35); MEAN CORPUSCULAR VOLUME 91.1 fL (81-99); MONOCYTES # (AUTO) 0.3 (0.2-0.8); MONOCYTES % 4.1 % (4.4-11.3); NEUTROPHILS # (AUTO) 7.3 (2.1-6.9); PLATELET COUNT 134 x10e3/uL (140-360); RED BLOOD COUNT 4.38 x10e6/uL (4.3-5.7); RED CELL DISTRIBUTION WIDTH 15.2 % (11.7-14.4)
[2020-10-22 11:09] LABS: CLARITY,URINE CLEAR (CLEAR); COLOR,URINE YELLOW (YELLOW); LEUKOCYTE ESTERASE ,URINE NEGATIVE (NEGATIVE); NITRITE,URINE NEGATIVE (NEGATIVE)
[2020-10-22 11:10] LABS: KETONES,URINE NEGATIVE (NEGATIVE); PROTEIN,URINE DIPSTICK >=300 (NEGATIVE); URINE UROBILINOGEN 1 mg/dL (0.2 - 1)
[2020-10-22] MEDS ORDERED: ALBUTEROL/IPRATROPIUM 3 ML NEB ONE (11:13)
[2020-10-22 11:20] LABS: INR 1.22; PROTHROMBIN TIME 16.1 seconds (11.9-14.5)
[2020-10-22 11:21] LABS: PARTIAL THROMBOPLASTIN TIME 38.6 seconds (23.8-35.5)
[2020-10-22 11:23] LABS: ALANINE AMINOTRANSFERASE 28 IU/L (0-55); ALBUMIN 4.1 g/dL (3.5-5.0); ALKALINE PHOSPHATASE 102 IU/L (40-150); ANION GAP 16.6 mmol/L (8-16); BLOOD UREA NITROGEN 22 mg/dL (7-26); BUN/CREATININE RATIO 19 (6-25); CALCIUM 8.7 mg/dL (8.4-10.2); CARBON DIOXIDE 25 mmol/L (22-29); CHLORIDE 95 mmol/L (98-107); CREATINE KINASE 66 IU/L (30-200); CREATININE, SERUM 1.14 mg/dL (0.72-1.25); EST GLOMERULAR FILTRATION RATE > 60 ML/MIN (60-); GLUCOSE 194 mg/dL (74-118); MAGNESIUM 1.6 MG/DL (1.3-2.1); POTASSIUM 4.6 mmol/L (3.5-5.1); SODIUM 132 mmol/L (136-145)
[2020-10-22 11:27] LABS: ABG PCO2 51 mmHg (35-45); ABG PH 7.39 (7.35-7.45)
[2020-10-22 11:28] LABS: ABG HCO3 31 mmol/L (22-26); ABG PO2 300 mmHg (80-105); ABG TCO2 33
[2020-10-22 11:30] LABS: BACTERIA,URINE MODERATE /HPF; EPITHELIAL CELLS,URINE FEW /LPF
[2020-10-22] MEDS ORDERED: FUROSEMIDE INJ 10 MG/ML 4 ML VIAL IV ONE (12:45)
[2020-10-22 16:35] VITALS: BP 127/85
== END 2020-10-22 17:42 | disposition other institution (70) ==
LOC: ER 11:02
DX: I48.20 Chronic atrial fibrillation, unspecified (principal); I50.9 Heart failure, unspecified; J96.90 Respiratory failure, unspecified, unspecified whether with hypoxia or hypercapnia; Z86.73 Personal history of transient ischemic attack (TIA), and cerebral infarction without residual deficits; R94.31 Abnormal electrocardiogram [ECG] [EKG]
CPT/HCPCS: 36415; 51700; 71045; 80053; 81001; 82550; 82553; 82805; 83605; 83735; 83880; 84484; 85025; 85379; 85610; 85730; 87040; 87086; 93005; 94660; 99284; J1160; J1940; J2930; U0002